=== PATIENT | male | born 1955 | race Caucasian/White ===

== ENCOUNTER 2020-04-17 08:10 | Outpatient (CLI) | payer MEDICARE, MEDICAID ==
[~2020-04-17] VITALS: Ht 172.7 cm; Wt 113.4 kg
[2020-04-17] MEDS ORDERED: aminophylline 250mg/10ml inj. IV PRN (09:10)
[2020-04-17] MEDS ORDERED: regadenoson 0.4mg/5ml syringe IV ONE (09:10)
[2020-04-17] MEDS ORDERED: nitroGLYCERIN 0.4mg SUBLingual tab SL PRN (09:10)
[2020-04-17] MEDS ORDERED: normal saline 500ml IV soln 500 ML IV ONE (09:10)
[2020-04-17 09:45] VITALS: BP 130/75
[2020-04-17 09:51] VITALS: BP 126/76
[2020-04-17 09:52] VITALS: BP 123/71
[2020-04-17 09:53] VITALS: BP 120/67
[2020-04-17 09:54] VITALS: BP 123/67
[2020-04-17 09:55] VITALS: BP 120/71
== END 2020-04-17 23:59 | disposition home or self-care (01) ==
LOC: RAD 08:10
PROVIDERS: ATTEND Internal Medicine Cardiovascular Disease
DX: Z01.810 Encounter for preprocedural cardiovascular examination (principal); R94.31 Abnormal electrocardiogram [ECG] [EKG]
CPT/HCPCS: 78452; 93017; A9500; J2785; J7040